=== PATIENT | female | born 1980 | race Hispanic/Latino ===

== ENCOUNTER 2018-01-10 08:59 | Emergency (ER) | payer SELFPAY | END 2018-01-10 10:07 | disposition home or self-care (01) | LOC: EDH 08:59 | DX: S52.601A Unspecified fracture of lower end of right ulna, initial encounter for closed fracture (principal); Z72.0 Tobacco use; W18.39XA Other fall on same level, initial encounter; Y93.01 Activity, walking, marching and hiking; Y92.89 Other specified places as the place of occurrence of the external cause; Y99.8 Other external cause status | CPT/HCPCS: 29125; 73090 ==

== ENCOUNTER 2018-07-30 15:55 | Emergency (ER) | payer SELFPAY ==
[2018-07-30] MEDS ORDERED: KETOROLAC TROMETHAMINE 30MG/ML ONE (16:59)
== END 2018-07-30 18:20 | disposition home or self-care (01) ==
LOC: EDH 15:55
DX: S01.511A Laceration without foreign body of lip, initial encounter (principal); Z72.0 Tobacco use; W18.39XA Other fall on same level, initial encounter; Y93.01 Activity, walking, marching and hiking; Y92.89 Other specified places as the place of occurrence of the external cause; Y99.8 Other external cause status
CPT/HCPCS: 70450; 70486; 96372; 99284; J1885

== ENCOUNTER 2019-09-09 09:35 | Emergency (ER) | payer SELFPAY ==
[2019-09-09] MEDS ORDERED: KETOROLAC TROMETHAMINE 60 MG/2 ML VIAL ONE (10:52)
[2019-09-09] MEDS ORDERED: ONDANSETRON ODT 4 MG TAB ONE (10:52)
== END 2019-09-09 11:33 | disposition home or self-care (01) ==
LOC: EDH 09:35
DX: S20.212A Contusion of left front wall of thorax, initial encounter (principal); Z90.710 Acquired absence of both cervix and uterus; W22.8XXA Striking against or struck by other objects, initial encounter; Y93.55 Activity, bike riding; Y92.89 Other specified places as the place of occurrence of the external cause; Y99.8 Other external cause status
CPT/HCPCS: 71101; 93005; 96372; 99284; J1885

== ENCOUNTER 2020-03-17 18:33 | Emergency (ER) | payer SELFPAY | END 2020-03-17 19:34 | disposition home or self-care (01) | LOC: EDH 18:33 | DX: M79.81 Nontraumatic hematoma of soft tissue (principal); Z90.49 Acquired absence of other specified parts of digestive tract; Z90.710 Acquired absence of both cervix and uterus; Z72.0 Tobacco use; X58.XXXA Exposure to other specified factors, initial encounter; Y93.89 Activity, other specified; Y92.512 Supermarket, store or market as the place of occurrence of the external cause; Y99.8 Other external cause status ==